=== PATIENT | female | born 1970 | race Caucasian/White ===

== ENCOUNTER 2021-09-09 10:39 | Outpatient (CLI) | payer OTHER, SELFPAY ==
[2021-09-09 12:39] LABS: Cholesterol* 197 mg/dL (90-199); Triglycerides* 43 mg/dL (40-149)
[2021-09-09 12:40] LABS: HDL Cholesterol* 78 mg/dL (>=50); LDL Cholesterol Calculated 110 mg/dL (<100)
== END 2021-09-09 10:40 | disposition home or self-care (01) ==
LOC: NFLDREF 10:40
PROVIDERS: PCP Family Medicine; Visit Provider Family Medicine
DX: E78.5 Hyperlipidemia, unspecified (principal)
CPT/HCPCS: 80061

== ENCOUNTER 2022-03-04 06:12 | Outpatient (CLI) | payer OTHER, SELFPAY | END 2022-03-04 06:13 | disposition home or self-care (01) | PROVIDERS: PCP Family Medicine; Visit Provider Internal Medicine | DX: Z12.11 Encounter for screening for malignant neoplasm of colon (principal) | CPT/HCPCS: 45378; J2250; J3010 ==

== ENCOUNTER 2022-08-12 08:52 | Outpatient (CLI) | payer OTHER, SELFPAY ==
--- NOTE | 2022-08-12 09:15 | CRLHL7_ITS ---
For Patients: As a result of the Century Cures Act, medical imaging exams and procedure reports are released immediately into your electronic medical record. You may view this report before your referring provider. If you have questions, please contact your health care provider. BILATERAL SCREENING MAMMOGRAM WITH COMPUTER-AIDED DETECTION TECHNIQUE: CC and MLO views were obtained. These mammographic images have been obtained using full-field digital technique. These mammographic images were interpreted with the benefit of computer-aided detection. COMPARISON FILM: 07/07/21, 07/02/20, 03/06/19. FINDINGS: The breasts are heterogeneously dense, which may obscure small masses IMPRESSION: There is no radiographic evidence for malignancy. ASSESSMENT: BI-RADS Category 1: Negative RECOMMENDATION: Routine screening mammogram in 1 year. A lay language report of this examination will be provided to the patient. Nikolai Hyde M.D. Diagnostic Radiologist [email or web address] SERGE/Dictated by: Nikolai Hyde MD @ 08/12/2022 11:02:00 AM (Electronically Signed)
== END 2022-08-12 08:53 | disposition home or self-care (01) ==
LOC: MAMMO 08:53
PROVIDERS: PCP Family Medicine; Visit Provider Family Medicine
DX: Z12.31 Encounter for screening mammogram for malignant neoplasm of breast (principal); R92.2 Inconclusive mammogram
CPT/HCPCS: 77067

== ENCOUNTER 2023-02-23 08:11 | Outpatient (CLI) | payer OTHER, SELFPAY ==
--- OUTSIDE RECORDS SUMMARY | 2023-02-27 12:05 | XMS_ITS | Clinical Summary ---
Author Name Unknown Organization [facility] Address [place], [place] [address] Care Team Providers Care Drug Safety Assistant Name Role Phone Aida Roman MD Primary Care Provider Quiana bentley Allergies Active Allergy Reactions Criticality Noted Date Comments Unlisted Allergen (Include Detail In Comments) Diarrhea,Nausea And Vomiting High 09/02/2013 Poultry and eggs Tetracycline Throat Swelling/Closing 09/02/2013 Throat starts itching Medications Medication Sig Dispensed Refills Start Date End Date Status Crutch For home use. 2 Device 0 09/07/2013 Active loratadine (CLARITIN) 10 mg tablet Take 1 tablet by mouth once daily. 0 05/23/2018 Active fluticasone (50 mcg per actuation) nasal solution (FLONASE) Inhale 1 [place] in the nostril(s) once daily. 1 Bottle 0 05/23/2018 Active azelastine 137 mcg/actuation (ASTELIN) nasal sprayIndications:Vaso motor rhinitis Inhale 1 [place] into affected nostril(s) two times daily. 30 mL 0 10/19/2021 Active Active Problems Problem Noted Date Diagnosed Date Chest pain 08/21/2018 Overview: EGD 08/2018 Esophagus and small bowel biopsies normal. [place] probe placed for pH monitoring Knee osteoarthritis 09/05/2013 S/P left unicompartmental knee replacement 09/05 Social History Tobacco Use Types Packs/Day Years Used Date Smoking Tobacco: Former Smokeless Tobacco: Never Tobacco Cessation:Counseling Given: Yes Comments:h/p states quit in 2008 Alcohol Use Standard Drinks/Week Comments Yes 0 (1 standard drink = 0.6 oz pur e alcohol) occas Social Connections Answer Date Recorded Frequency of Communication with Friends and Fami ly Not on file 02/06/2021 Financial Resource Strain Answer Date R ecorded Difficulty of Paying Living Expenses Not on file 02/06/2021 Difficulty of Paying Living Expenses Not on file 02/06/2021 Sex and Gender Information Value Date Recorded Sex Assigned at Not on file Gender Identity Not on file Sexual Orientation Not on file Obstetrics History Last Filed Vital Signs Vital Sign Reading Time Taken Comments Blood Pressure 126/82 08/03/2020 8:25 AM CDT Pulse 100 08/03/2020 8:25 AM CDT Temperature 36.8 ??C (98.3 ??F) 08/03/2020 8:25 AM CD T Respiratory Rate 16 09/07/2013 8:23 AM CDT Oxygen Saturation 100% 08/03/2020 8:25 AM CDT Inhaled Oxygen Concentration - - Weight 71.2 kg (157 lb) 08/03/2020 8:25 AM CDT Height 162.6 cm (5' 4) 08/03/2020 8:25 AM CDT Body Mass Index 26.95 08/03/2020 8:25 AM CDT Plan of Treatment Health Maintenance Due Date Last Done Comments Tdap 10/24/1983 Depression screening for age 12+ 1984 HIV for age 15-65 10/24/1987 Hepatitis C screening for age 18-79 1990 Tetanus booster 1992 Colonoscopy through age 75 2017 Lipids for age 45-75 2017 Mammogram for age 45-75 2017 BMI (ht and wt on same day) for age 18+ 08/03/2021 08/03/2020, 05/23/2018 COVID-19 vaccine series ( season) 2022 07/23/2020, 05/19/2020 Influenza for age 50-64 2022 Zoster (shingles) series for age 50+ (1 of 2) 2022 Pap test for age 21-65 09/09/2024 2, 09/09/2021, 02/21/2018, Additional history exists Pneumococcal series for age 6-64 Aged Out No longer eligible based on patient's age to complete this topic Medical Devices Implanted Type Area Baller Tender Device Identifier Shelf Expiration Date Model / Serial / Lot Cmnt Bone 40g Simplex P Atb Mvtobramycin - [id number] Implanted:Qty: 1 on 09/05/2013 by Shen Sullivan MD at [facility] Left: Knee [employer] 12/06/2014 6197-9-00 1# / / [id number] Baseplate Tib Lm/Rl Szb Oxfordunicondylar Titnm Niobium Nitr - [id number] Implanted:Qty: 1 on 09/05/2013 by Shen Sullivan MD at [facility] Left: Knee BIOMET 05/07/2023 [id number]# / / [id number] Fem Univ Sm [place] - [id number] Implanted:Qty: 1 on 09/05/2013 by Shen Sullivan MD at [facility] Left: Knee BIOMET 06/06/2023 [id number]# / / [id number] Insert Knee Lt Sz3 Sm [place] Unicondylar Uhmwpe - [id number] Implanted:Qty: 1 on 09/05/2013 by Shen Sullivan MD at [facility] Left: Knee BIOMET 01/05/2018 [id number]# / / [id number] Advance Directives Latest Code Status on File Code Status Date Activated Date Inactivated Comments Full Code 09/05/2013 10:06 AM 09/07/2013 4:25 PM Code Status History Code Status Date Activated Date Inactivated Comments Full Code 09/05/2013 6:20 AM 09/05/2013 10:06 AM Care Teams Drug Safety Assistant Relationship Specialty Start Date End Date Aida Roman MD PCP - General Family Practice 05/23/18
== END 2023-02-23 08:12 | disposition home or self-care (01) ==
LOC: NFLDREF 02-27 11:59
PROVIDERS: PCP Family Medicine; Referring Provider Family Medicine; Visit Provider Family Medicine
DX: Z00.00 Encounter for general adult medical examination without abnormal findings (principal); R79.89 Other specified abnormal findings of blood chemistry; E78.5 Hyperlipidemia, unspecified
CPT/HCPCS: 80053; 80061

== ENCOUNTER 2023-05-25 07:50 | Outpatient (CLI) | payer OTHER, SELFPAY ==
--- OUTSIDE RECORDS SUMMARY | 2023-05-26 07:12 | XMS_ITS | Clinical Summary ---
Author Name Unknown Organization [facility] Address [place], [place] [address] Care Team Providers Care Environmental Scientist Name Role Phone Aida Roman MD Primary [...] per actuation) nasal solution (FLONASE) Inhale 1 [place] in the nostril(s) once daily. 1 Bottle 05/23/2018 Active azelastine 137 mcg/actuation (ASTELIN) nasal sprayIndications:Vaso motor rhinitis Inhale 1 [place] into affected nostril(s) two times daily. 30 mL 10/19/2021 Active Active Problems Problem Noted Date [...] 18+ 08/03/2021 08/03/2020, 05/23/2018 COVID-19 vaccine series (2022- season) 2022 07/23/2020, 05/19/2020 Zoster (shingles) series for age 50+ (1 of 2) 2022 Influenza for age 50-64 10/08/2023 Pap test for age 21-65 09/09/2024 2, 09/09/2021, 02/21/2018, Additional history exists Pneumococcal series for age 6-64 Aged Out No longer eligible based on patient's age to complete this topic Medical Devices Implanted Type Area Parts Finisher Device Identifier Shelf Expiration Date Model / Serial / Lot Cmnt Bone 40g Simplex P Atb Mvtobramycin - [id number] Implanted:Qty: 1 on 09/05/2013 by Shen Sullivan MD at [facility] Left: Knee [employer] 12/06/2014 6197-9-00 1# / / [id number] Baseplate Tib Lm/Rl Szb Oxfordunicondylar Titnm Niobium Nitr - [id number] Implanted:Qty: 1 on 09/05/2013 by Shen Sullivan MD at [facility] Left: Knee BIOMET 05/07/2023 [id number]# / / [id number] Fem Univ Sm [place] - [id number] Implanted:Qty: 1 on 09/05/2013 by Shen Sullivan MD at [facility] Left: Knee BIOMET 06/06/2023 [id number]# / / [id number] Insert Knee Lt Sz3 Sm [place] Unicondylar Uhmwpe - [id number] Implanted:Qty: 1 on 09/05/2013 by Shen Sullivan MD at [facility] Left: Knee BIOMET 01/05/2018 [id number]# / / [id number] Procedures Procedure Name Priority Date/Time Associated Diagnosis Comments HPV THIN PREP Routine 09/09/2021 10:50 AM CDT from Last 3 Months or Most Recently Relevant to Health Maintenance Results * HPV HIGH RISK (09/09/2021 10:50 AM CDT) TYPE 16 Negative Negative 09/15/2021 11:45 AM CDT [facility] [employer] [facility] TRAL LABORATORY TYPE 18 Negative Negative 09/15/2021 11:45 AM CDT [facility] TRAL LABORATORY OTHER HIGH RISK TYPES Negative Negative 09/15/2021 11:45 AM CDT [facility] TRAL LABORATORY Other VAGINAL SWAB / Unknown 09/09/2021 10:50 AM CDT 09/13/2021 3:42 PM CDT [facility]-CENTRAL LABORATORY - 09/15/2021 11:45 AM CDT HPV types 16, 18, 31, 33, 35, 39, 45, 51, 52, 56, 58, 59, 66 and 68 DNA were undetectable or below the pre-set threshold. Methodology: Richar Santiago 4800 HPV Test Daphney Horta MD [employer] [employer] LABORATORY-CENTRAL LABORATORY [address] [place] [address], from Last 3 Months or Most Recently Relevant to Health Maintenance Advance Directives * Full Code (Latest Code Status on File) Date Activated Date Inactivated Comments 09/05/2013 10:06 AM 09/07/2013 4:25 PM * Full Code Date Activated Date Inactivated Comments 09/05/2013 6:20 AM 09/05/2013 10:06 AM Care Teams Environmental Scientist Relationship Specialty Start Date End Date Aida Roman MD PCP - General Family Practice 05/23/18
== END 2023-05-25 07:51 | disposition home or self-care (01) ==
LOC: NFLDREF 05-26 07:09
PROVIDERS: PCP Family Medicine; Referring Provider Family Medicine; Visit Provider Family Medicine
DX: R79.89 Other specified abnormal findings of blood chemistry (principal)
CPT/HCPCS: 80076; 86803

== ENCOUNTER 2023-05-29 13:25 | Outpatient (CLI) | payer OTHER, SELFPAY ==
--- OUTSIDE RECORDS SUMMARY | 2023-05-31 11:30 | XMS_ITS | Clinical Summary ---
Author Name Unknown Organization [facility] Address [place], [place] [address] Care Team Providers Care Bridge Leverman Name Role Phone Aida Roman MD Primary [...] per actuation) nasal solution (FLONASE) Inhale 1 [place] in the nostril(s) once daily. 1 Bottle 05/23/2018 Active azelastine 137 mcg/actuation (ASTELIN) nasal sprayIndications:Vaso motor rhinitis Inhale 1 [place] into affected nostril(s) two times daily. 30 [...] this topic Medical Devices Implanted Type Area Supervisor Publications Device Identifier Shelf Expiration Date Model / Serial / Lot Cmnt Bone 40g Simplex P Atb Mvtobramycin - [id number] Implanted:Qty: 1 on 09/05/2013 by Shen Sullivan MD at [facility] Left: Knee [employer] 12/06/2014 6197-9-00 1# / / [id number] Baseplate Tib Lm/Rl Szb Oxfordunicondylar Titnm Niobium Nitr - [id number] Implanted:Qty: 1 on 09/05/2013 by Shen Sullivan MD at [facility] Left: Knee BIOMET 05/07/2023 [id number]# / / [id number] Fem Univ Sm [place] - [id number] Implanted:Qty: 1 on 09/05/2013 by Shen Sullivan MD at [facility] Left: Knee BIOMET 06/06/2023 [id number]# / / [id number] Insert Knee Lt Sz3 Sm [place] Unicondylar Uhmwpe - [id number] Implanted:Qty: 1 on 09/05/2013 by Shen Sullivan MD at [facility] Left: Knee BIOMET 01/05/2018 [id number]# / / [id number] Procedures Procedure Name Priority Date/Time Associated Diagnosis Comments HPV THIN PREP Routine 09/09/2021 10:50 AM CDT from Last 3 Months or Most Recently Relevant to Health Maintenance Results * HPV HIGH RISK (09/09/2021 10:50 AM CDT) TYPE 16 Negative Negative 09/15/2021 11:45 AM CDT [facility] [employer] [facility] TRAL LABORATORY TYPE 18 Negative Negative 09/15/2021 11:45 AM CDT [facility] TRAL LABORATORY OTHER HIGH RISK TYPES Negative Negative 09/15/2021 11:45 AM CDT [facility] TRAL LABORATORY Other VAGINAL SWAB / Unknown 09/09/2021 10:50 AM CDT 09/13/2021 3:42 PM CDT [facility]CENTRAL LABORATORY - 09/15/2021 11:45 AM CDT HPV types 16, 18, 31, 33, 35, 39, 45, 51, 52, 56, 58, 59, 66 and 68 DNA were undetectable or below the pre-set threshold. Methodology: Richar Santiago 4800 HPV Test Daphney Horta MD MICROBIOLOGY [employer] LABORATORY-CENTRAL LABORATORY [address] [place] [address], from Last 3 Months or Most Recently Relevant to Health Maintenance Advance Directives * Full Code (Latest Code Status on File) Date Activated Date Inactivated Comments 09/05/2013 10:06 AM 09/07/2013 4:25 PM * Full Code Date Activated Date Inactivated Comments 09/05/2013 6:20 AM 09/05/2013 10:06 AM Care Teams Bridge Leverman Relationship Specialty Start Date End Date Aida Roman MD PCP - General Family Practice 05/23/18
== END 2023-05-29 13:26 | disposition home or self-care (01) ==
LOC: NFLDREF 05-31 11:24
PROVIDERS: PCP Family Medicine; Referring Provider Family Medicine; Visit Provider Family Medicine
DX: R74.8 Abnormal levels of other serum enzymes (principal)
CPT/HCPCS: 82728; 86039; 86256; 86381; 87340

== ENCOUNTER 2023-06-09 06:59 | Outpatient (CLI) | payer OTHER, SELFPAY ==
--- OUTSIDE RECORDS SUMMARY | 2023-06-09 07:02 | XMS_ITS | Clinical Summary ---
Author Name Unknown Organization [employer] [facility] Address [place], [place] [address] Care Team Providers Care Wire Stripping Machine Operator Name Role Phone Aida Roman MD Primary [...] per actuation) nasal solution (FLONASE) Inhale 1 [place] in the nostril(s) once daily. 1 Bottle 05/23/2018 Active azelastine 137 mcg/actuation (ASTELIN) nasal sprayIndications:Vaso motor rhinitis Inhale 1 [place] into affected nostril(s) two times daily. 30 [...] this topic Medical Devices Implanted Type Area Rolls Baker Device Identifier Shelf Expiration Date Model / Serial / Lot Cmnt Bone 40g Simplex P Atb Mvtobramycin - [id number] Implanted:Qty: 1 on 09/05/2013 by Shen Sullivan MD at [facility] Left: Knee [employer] 12/06/2014 6197-9-00 1# / / [id number] Baseplate Tib Lm/Rl Szb Oxfordunicondylar Titnm Niobium Nitr - [id number] Implanted:Qty: 1 on 09/05/2013 by Shen Sullivan MD at [facility] Left: Knee BIOMET 05/07/2023 [id number]# / / [id number] Fem Univ Sm [place] - [id number] Implanted:Qty: 1 on 09/05/2013 by Shen Sullivan MD at [facility] Left: Knee BIOMET 06/06/2023 [id number]# / / [id number] Insert Knee Lt Sz3 Sm [place] Unicondylar Uhmwpe - [id number] Implanted:Qty: 1 on 09/05/2013 by Shen Sullivan MD at [facility] Left: Knee BIOMET 01/05/2018 [id number]# / / [id number] Procedures Procedure Name Priority Date/Time Associated Diagnosis Comments HPV THIN PREP Routine 09/09/2021 10:50 AM CDT from Last 3 Months or Most Recently Relevant to Health Maintenance Results * HPV HIGH RISK (09/09/2021 10:50 AM CDT) TYPE 16 Negative Negative 09/15/2021 11:45 AM CDT [facility] [employer] [facility] TRAL LABORATORY TYPE 18 Negative Negative 09/15/2021 11:45 AM CDT [facility] TRAL LABORATORY OTHER HIGH RISK TYPES Negative Negative 09/15/2021 11:45 AM CDT [facility] TRAL LABORATORY Other VAGINAL SWAB / Unknown 09/09/2021 10:50 AM CDT 09/13/2021 3:42 PM CDT [facility]-CENTRAL LABORATORY - 09/15/2021 11:45 AM CDT HPV types 16, 18, 31, 33, 35, 39, 45, 51, 52, 56, 58, 59, 66 and 68 DNA were undetectable or below the pre-set threshold. Methodology: Richar Santiago 4800 HPV Test Daphney Horta MD MICROBIOLOGY [employer] LABORATORY-CENTRAL LABORATORY [address] [place] [address], from Last 3 Months or Most Recently Relevant to Health Maintenance Advance Directives * Full Code (Latest Code Status on File) Date Activated Date Inactivated Comments 09/05/2013 10:06 AM 09/07/2013 4:25 PM * Full Code Date Activated Date Inactivated Comments 09/05/2013 6:20 AM 09/05/2013 10:06 AM Care Teams Wire Stripping Machine Operator Relationship Specialty Start Date End Date Aida Roman MD PCP - General Family Practice 05/23/18
--- NOTE | 2023-06-09 07:15 | US_ITS ---
Patient: RAN MALLOY Facility:?[facility] Patient ID:?[id number] Site Patient ID:?[id number]. Site :?[id number] Study:?US-Abdomen RUQ-06/09/2023 7:36:21 AM Ordering Physician:?TOI TIERNEY M.D. Final Report: INDICATION: Abnormal serum enzymes. COMPARISON: Report of the CT of the abdomen and pelvis from 05/24/2017 TECHNIQUE: Ultrasound examination of the right upper quadrant was performed. FINDINGS: There has been interval cholecystectomy, with nothing seen in the gallbladder fossa. The common bile duct is normal in caliber at 8 mm. The pancreatic head and body were examined, and these are normal in appearance. The abdominal aorta and visualized portions of the inferior vena cava are normal in appearance. The liver shows no sign of mass or contour abnormality, and there is no sign of ascites. There is normal antegrade color Doppler flow in the main portal vein which is normal in caliber at 12 millimeters. The right kidney is unremarkable. IMPRESSION: 1. Satisfactory appearance status post cholecystectomy with no sign of biliary ductal dilatation. 2. No other abnormality seen in the right quadrant. Dictated by Kp Leroy MD @ 06/09/2023 10:08:41 AM Signed by:?Kp Leroy MD @06/09/2023 10:08:41 AM (Electronic Signature)
== END 2023-06-09 07:00 | disposition home or self-care (01) ==
PROVIDERS: PCP Family Medicine; Visit Provider Family Medicine
DX: R74.8 Abnormal levels of other serum enzymes (principal)
CPT/HCPCS: 76705

== ENCOUNTER 2023-07-04 08:41 | Outpatient (CLI) | payer OTHER, SELFPAY ==
--- OUTSIDE RECORDS SUMMARY | 2023-07-04 08:46 | XMS_ITS | Clinical Summary ---
Author Organization [employer] [facility] Address [place], [place] [address] Care Team Providers Care Elephant Tamer Name Role Phone Aida Roman MD Primary [...] per actuation) nasal solution (FLONASE) Inhale 1 [place] in the nostril(s) once daily. 1 Bottle 05/23/2018 Active azelastine 137 mcg/actuation (ASTELIN) nasal sprayIndications:Vaso motor rhinitis Inhale 1 [place] into affected nostril(s) two times daily. 30 [...] this topic Medical Devices Implanted Type Area Composer Teaching Artist Device Identifier Shelf Expiration Date Model / Serial / Lot Cmnt Bone 40g Simplex P Atb Mvtobramycin - [id number] Implanted:Qty: 1 on 09/05/2013 by Shen Sullivan MD at [facility] Left: Knee [employer] 12/06/2014 6197-9-00 1# / / [id number] Baseplate Tib Lm/Rl Szb Oxfordunicondylar Titnm Niobium Nitr - [id number] Implanted:Qty: 1 on 09/05/2013 by Shen Sullivan MD at [facility] Left: Knee BIOMET 05/07/2023 [id number]# / / [id number] Fem Univ Sm [place] - [id number] Implanted:Qty: 1 on 09/05/2013 by Shen Sullivan MD at [facility] Left: Knee BIOMET 06/06/2023 [id number]# / / [id number] Insert Knee Lt Sz3 Sm [place] Unicondylar Uhmwpe - [id number] Implanted:Qty: 1 on 09/05/2013 by Shen Sullivan MD at [facility] Left: Knee BIOMET 01/05/2018 [id number]# / / [id number] Procedures Procedure Name Priority Date/Time Associated Diagnosis Comments HPV THIN PREP Routine 09/09/2021 10:50 AM CDT from Last 3 Months or Most Recently Relevant to Health Maintenance Results * HPV HIGH RISK (09/09/2021 10:50 AM CDT) TYPE 16 Negative Negative 09/15/2021 11:45 AM CDT [facility] [employer] [facility] TRAL LABORAT[facility] TYPE 18 Negative Negative 09/15/2021 11:45 AM CDT [facility] TR[facility] LAB[facility] OTHER HIGH RISK TYPES Negative Negative 09/15/2021 11:45 AM CDT [facility] TRAL LABORATORY Other VAGINAL SWAB / Unknown 09/09/2021 10:50 AM CDT 09/13/2021 3:42 PM CDT [facility]-CENTRAL LABORATORY - 09/15/2021 11:45 AM CDT HPV types 16, 18, 31, 33, 35, 39, 45, 51, 52, 56, 58, 59, 66 and 68 DNA were undetectable or below the pre-set threshold. Methodology: Richar Santiago 4800 HPV Test Daphney Horta MD MICROBIOLOGY [employer] LABORATORY-CENTRAL LABORATORY [address] [place] [address], from Last 3 Months or Most Recently Relevant to Health Maintenance Advance Directives * Full Code (Latest Code Status on File) Date Activated Date Inactivated Comments 09/05/2013 10:06 AM 09/07/2013 4:25 PM * Full Code Date Activated Date Inactivated Comments 09/05/2013 6:20 AM 09/05/2013 10:06 AM Care Teams Elephant Tamer Relationship Specialty Start Date End Date Aida Roman MD PCP - General Family Practice 05/23/18
--- NOTE | 2023-07-04 09:15 | CRLHL7_ITS ---
For Patients: As a result of the Century Cures Act, medical imaging exams and procedure reports are released immediately into your electronic medical record. You may view this report before your referring provider. If you have questions, please contact your health care provider. INDICATION: Peritoneal and pelvic pain. History of partial hysterectomy. TECHNIQUE: Transabdominal and transvaginal pelvic ultrasound. FINDINGS: Uterus has been surgically removed. The cervix remains. Both ovaries have normal color and spectral Doppler flow. 3.3 cm simple right ovarian cyst. There is also a corpus luteum in the right ovary. Left ovary is normal. IMPRESSION: 1. Corpus luteum and 3.3 cm simple cyst in the right ovary. 2. Hysterectomy. Dictated by Jefferson Agee MD @ 07/04/2023 12:34:28 PM (Electronically Signed)
== END 2023-07-04 08:42 | disposition home or self-care (01) ==
LOC: US 08:42
PROVIDERS: PCP Family Medicine; Visit Provider Physician Assistant
DX: R10.2 Pelvic and perineal pain (principal); N83.201 Unspecified ovarian cyst, right side
CPT/HCPCS: 76830; 76856; 93976

== ENCOUNTER 2023-08-16 11:23 | Outpatient (CLI) | payer OTHER, SELFPAY ==
--- NOTE | 2023-08-16 11:30 | CRLHL7_ITS ---
For Patients: As a result of the Century Cures Act, medical imaging exams and procedure reports are released immediately into your electronic medical record. You may view this report before your referring provider. If you have questions, please contact your health care provider. BILATERAL SCREENING MAMMOGRAM WITH COMPUTER-AIDED DETECTION AND TOMOSYNTHESIS TECHNIQUE: CC and MLO views were obtained. These mammographic images have been obtained using full-field digital technique. These mammographic images were interpreted with the benefit of computer-aided detection. Breast Tomosynthesis was used in this interpretation. COMPARISON FILM: 08/12/22, 07/07/21, 07/02/20. FINDINGS: There are scattered areas of fibroglandular density. IMPRESSION: There is no radiographic evidence for malignancy. ASSESSMENT: BI-RADS Category 1: Negative RECOMMENDATION: Routine screening mammogram in 1 year. A lay language report of this examination will be provided to the patient. Cruz Padron M.D. Diagnostic/Nuclear Medicine Radiologist [email or web address] CHRISTOPHER/lisa SP/Dictated by: Cruz Padron MD @ 08/17/2023 10:48:00 AM (Electronically Signed)
== END 2023-08-16 11:24 | disposition home or self-care (01) ==
LOC: MAMMO 11:23
PROVIDERS: PCP Family Medicine; Visit Provider Family Medicine
DX: Z12.31 Encounter for screening mammogram for malignant neoplasm of breast (principal)
CPT/HCPCS: 77063; 77067

== ENCOUNTER 2024-02-29 08:07 | Outpatient (CLI) | payer OTHER, SELFPAY | END 2024-02-29 08:08 | disposition home or self-care (01) | LOC: NFLDREF 03-08 07:49 | PROVIDERS: PCP Family Medicine; Referring Provider Family Medicine; Visit Provider Family Medicine | DX: E78.5 Hyperlipidemia, unspecified (principal); R79.89 Other specified abnormal findings of blood chemistry; R00.2 Palpitations | CPT/HCPCS: 80053; 80061; 84443 ==

== ENCOUNTER 2024-08-13 07:30 | Outpatient (RCR) | payer OTHER, SELFPAY ==
--- NOTE | 2024-07-09 10:07 | PT.OPEX ---
PT [facility] [facility] Eval PT [facility] Outpatient Eval Start: 07/09/24 07:24 Freq: Status: Active Protocol: Document 07/09/24 08:29 VMS (Rec: 07/09/24 09:57 VMS [id number]) E-signed By Lisa Doll Physical Therapy Outpatient Evaluation Insurance Information Insurance Name Other; See Comments Insurance [facility] Information/Comments Medical Diagnosis Bilateral plantar fasciitis Treating Diagnosis R heel pain L heel pain Limited R LE ROM Limited L LE ROM Referring MD Lawrence Stone Subjective Subjective July 09 2024 : Arnie is a 53 year F with complaints of bilateral plantar fasciitis (R >L) Date of onset: 4-6 weeks ago Aggravating Factors: overactivity, being barefoot, standing for too long Easing Factors: calf stretching, zero drop shoes Method of Injury: insidious, within a week of switching walking shoes Radiation: Denies Numbness / Tingling: Denies Progression: gradually improving Exercise: running (but has stopped due to partial knee replacement), walks now, biking (10-12 miles per day) wants to get back to hiking History of Plantar Fascia Injuries: one bout 20 years ago, resolved with TENS Pt goal: trying to avoid injection, get back to walking without restrictions Review of Systems: History obtained from chart review, health history form, and the patient. I am only responding to those symptoms which are directly relevant to my consultation. Recommend the patient follow up with their primary/referring provider for other symptoms. Pain Comments Pain Location/Type: sometimes in arch, mostly in heel on R side Current: 1/10 in the arch (tenderness) Best: 1/10 Worst: 6/10 Occupation Stay at home mom Objective Other/Pertinent Functional Tests: Objective Gait: Unremarkable Squats: limited depth; heavily knee dominant SL Squats: limited depth; slight valgus moment Balance (SL eyes closed): R: 12 sec; L: 6 sec CKC DF: R: 13 cm; L: 8 cm Palpation: TTP along midline of R heel and along medial arch; no tenderness along lateral/medial aspects of heel, lateral boarder of foot or along bases of metatarsals. No TTP on L. JPA: Talocrural: Anterior: Normal Posterior: Normal Distraction: Normal Subtalar: Lateral: Normal Medial: Normal Posture/Observation: high arches, R foot turned out more than L PROM: Ankle: PF: L: 84 deg; R: 80 deg DF (straight knee/gastroc): L: 2 deg past neutral; R: 0 deg past neutral DF (bent knee): 10 deg past neutral bilat Strength: Ankle: PF: Not tested today DF: 5/5 bilat Eversion: 5/5 bilat Inversion: 5/5 bilat Knee: Quadriceps: 5/5 bilat Hamstrings: 5/5 R; 4+/5 L Hip: IR: 5/5 bilat ER: 5/5 bilat Abduction: 4-/5 bilat Extension: 5/5 bilat Special Tests: Plantar Fasciitis: Windlass test: (+) on R Functional Test LEFS: Not today Performed & Score Assessment Assessment/ 2024-07-09: Initial Evaluation Assessment & PT Impression Impression: Mrs. Bey is a pleasant 53 year female presenting to outpatient physical therapy with primary complaint of R heel pain secondary to plantar fasciitis. Pertinent physical examination findings include gastroc tightness , hip abduction weakness, impaired balance, positive Windlass test, and tenderness to palpation in the R heel and along medial arch. Functionally, the patient is limited in activities including standing for prolonged periods of time, walking, and exercising and participation in recreational activities such as hiking and yoga. Patient education provided today regarding acceptable pain thresholds, 24 hour report rule, activity modifications, shoe wear, arch supports, results of examination, reason for HEP, and POC moving forward. She requires skilled physical therapy in order to address the above impairments, improve patients symptom status, and assist her in returning to her prior level of function. Barriers to Learning: None Primary Functional standing, completing activities/ADLs barefoot, walking, Limitations recreational activities, exercising Plan of Care Rehabilitation Excellent Potential Physical Therapy STG: Goals 1. Patient will be independent with HEP by the end of 2 weeks. 2. Patient will improve R gastroc length as evidenced by improved DF PROM to be within 5 degrees of L by the end of 4 weeks. LT. Patient will be able to stand for at least 1 hour with no greater than 3/10 pain by the end of 8 weeks. 2. Patient will be able to walk for at least 3 miles with no greater than 3/10 pain by the end of 8 weeks. 3. Patient will be able to hike for at least 30 minutes with no greater than 3/10 pain by the end of 8 weeks. Coordination/ Referral Source Communication With Treatment Plan/ Joint Mobilization,Manual Therapy,Neuromuscular Re-ed, Direct Interventions Therapeutic Activities,Therapeutic Exercises Frequency/Duration 1x/week for 8 weeks Patient Will Be Completion of LTG(s),Independent w/HEP,Independently Discharged From Progressing Therapy Evaluation Billing Untimed Code 50 Treatment Minutes Complexity Moderate Certification Information Initial 07/09/24 Certification Date Ending Certification 10/01/24 Date Provider Signature Yes Required Provider Signature POC & Medical Necessity Shows Agreement With Physician NPI Number Write NPI# Here Physician Comment/ : Change Physician Signature Please Sign/Date Here & Date Requested
== END 2024-09-20 11:52 | disposition home or self-care (01) ==
PROVIDERS: PCP Family Medicine; Visit Provider Podiatrist
DX: M72.2 Plantar fascial fibromatosis (principal); Z51.89 Encounter for other specified aftercare
CPT/HCPCS: 97110; 97112; 97140; 97162; 97530

== ENCOUNTER 2024-09-27 07:52 | Outpatient (CLI) | payer OTHER, SELFPAY ==
--- NOTE | 2024-09-27 08:15 | CRLHL7_ITS ---
For Patients: As a result of the Century Cures Act, medical imaging exams and procedure reports are released immediately into your electronic medical record. You may view this report before your referring provider. If you have questions, please contact your health care provider. INDICATION: BILATERAL SCREENING MAMMOGRAM, ASYMPTOMATIC 53 Y/O FEMALE COMPARISON: 08/16/2023, 08/12/2022, 07/07/2021 TECHNIQUE: Digital mammogram in CC and MLO projections including computer-aided detection (CAD) and tomosynthesis. BREAST COMPOSITION: The breasts are heterogeneously dense, which may obscure small masses. FINDINGS: No suspicious findings. ASSESSMENT: BI-RADS 1 Negative RECOMMENDATION: Annual screening mammogram. A lay language report of this examination will be provided to the patient. Dictated by: Nikolai Hyde MD @ 09/30/2024 12:23:08 (Electronically Signed)
== END 2024-09-27 07:53 | disposition home or self-care (01) ==
LOC: MAMMO 07:52
PROVIDERS: PCP Family Medicine; Visit Provider Family Medicine
DX: Z12.31 Encounter for screening mammogram for malignant neoplasm of breast (principal); R92.333 Mammographic heterogeneous density, bilateral breasts
CPT/HCPCS: 77063; 77067